=== PATIENT | female | born 1980 | race Caucasian/White ===

== ENCOUNTER 2016-08-02 09:31 | Day surgery (SDC) | payer OTHER ==
[~2016-08-02 09:31] MED LIST: FENTANYL 250 MCG/5 ML AMP IV PRN; LACTATED RINGERS 1,000 ML IV SCH; MIDAZOLAM HCL 5 MG/5 ML VIAL IV PRN
[2016-08-02] MEDS ORDERED: IV START KIT ONE (09:36)
[2016-08-02] MEDS ORDERED: LACTATED RINGERS 1,000 ML ONE (09:36)
[2016-08-02] MEDS ORDERED: FENTANYL 5 ML ONE (10:49)
[2016-08-02] MEDS ORDERED: MIDAZOLAM HCL 5 MG/5 ML VIAL ONE (10:49)
[2016-08-02] MEDS ORDERED: MIDAZOLAM HCL 1 MG/ML 2ML VIAL ONE (11:13)
--- NOTE | 2016-08-06 08:54 | SURGPATH ---
[facility] [address] [place] [id number] Patient Name: ODILIA KITCHEN MR#: [id number] : 1980 Gender: F Specimen #: [id number] Collected: 08/02/2016 Received: 08/03/2016 Reported: 08/06/2016 Submitting Phys: PAULETTE BARROW Copy To Phys: MEHRAN MUNOZ [facility] Clinical History / Pre-Operative Diagnosis: Perineum pain, diarrhea, rectal bleeding, rule out ileitis and colitis Specimen Source / Surgical Procedure Performed: #1 terminal ileum biopsy, #2 cecal biopsy, #3 sigmoid biopsy Interpretation: 1. TERMINAL ILEUM, BIOPSY: - NO PATHOLOGIC ABNORMALITIES 2. CECAL BIOPSY: - NO PATHOLOGIC ABNORMALITIES 3. SIGMOID BIOPSY AT 30 CM: - NO PATHOLOGIC ABNORMALITIES Electronically Signed Out Yayo Adame M.D. Gross Description: The specimen is received in three formalin filled containers, labeled with the patient's name. 1. The specimen is labeled "terminal ileum" and consists of one irregularly shaped fragment(s) of ortiz tissue aggregating to 0.3 x 0.3 x 0.3 cm. The specimen is entirely submitted in cassette 1A. 2. The specimen is labeled "cecal" and consists of one irregularly shaped fragment(s) of ortiz tissue aggregating to 0.4 x 0.3 x 0.3 cm. The specimen is entirely submitted in cassette 2A. 3. The specimen is labeled "sigmoid 30 cm" and consists of two irregularly shaped fragment(s) of ortiz tissue aggregating to 0.5 x 0.3 x 0.2 cm. The specimen is entirely submitted in cassette 3A. CATRACHITA Robb Microscopic Description: 1. The sections show fragments of small bowel mucosa exhibiting a normal architectural pattern without evidence of villous blunting. There are no inflammatory or neoplastic features and there are no microorganisms identified. 2. The sections show fragments of colonic mucosa exhibiting a normal architectural pattern. There are no inflammatory or neoplastic features and the basement membrane is of normal caliber. 3. The sections show fragments of colonic mucosa exhibiting a normal architectural pattern. There are no inflammatory or neoplastic features and the basement membrane is of normal caliber. 1: 82705 2: 51756 3: 11241 R19.7
== END 2016-08-02 12:59 | disposition home or self-care (01) ==
LOC: SDC 09:31
PROVIDERS: ATTEND Internal Medicine Gastroenterology
PROC: 0DBH8ZX Excision of Cecum, Via Natural or Artificial Opening Endoscopic, Diagnostic (ICD-10-PCS; principal; 2016-08-02)
PROC: 0DBN8ZX Excision of Sigmoid Colon, Via Natural or Artificial Opening Endoscopic, Diagnostic (ICD-10-PCS; 2016-08-02)
PROC: 0DBB8ZX Excision of Ileum, Via Natural or Artificial Opening Endoscopic, Diagnostic (ICD-10-PCS; 2016-08-02)
DX: K59.8 Other specified functional intestinal disorders (principal); K64.1 Second degree hemorrhoids; F43.10 Post-traumatic stress disorder, unspecified; F41.8 Other specified anxiety disorders; G47.00 Insomnia, unspecified; Z88.2 Allergy status to sulfonamides; Z88.0 Allergy status to penicillin
CPT/HCPCS: 45380; J3010; J2250 ×2; J7120